=== PATIENT | male | born 1990 | race Two or more races ===

== ENCOUNTER 2019-09-05 10:44 | Day surgery (SDC) | payer MEDICAID ==
[2019-08-28 12:46] LABS: BASOPHILS % (AUTO) 0.3 % (0-1); EOSINOPHILS # (AUTO) 0.4 X10'3 (0-0.9); EOSINOPHILS % (AUTO) 4.1 % (0-6); LYMPHOCYTES # (AUTO) 4.2 X10'3 (1.1-4.8); LYMPHOCYTES % (AUTO) 41.3 % (21-51); MEAN CORPUSCULAR HEMOGLOBIN 21.5 PG (27.0-31.0); MEAN CORPUSCULAR HGB CONC 32.2 g/dL (33.0-36.5); MEAN PLATELET VOLUME 6.9 FL (7.4-10.4); MONOCYTES # (AUTO) 0.7 X10'3 (0-0.9); MONOCYTES % (AUTO) 6.5 % (2-12); NEUTROPHILS # (AUTO) 4.9 X10'3 (1.8-7.7); NEUTROPHILS % (AUTO) 47.8 % (42-75); PRE OP HEMATOCRIT 38.2 % (42.0-52.0); PRE OP HEMOGLOBIN 12.3 g/dL (14.0-17.9); PRE OP PLATELET COUNT 375 X10'3 (140-440)
[2019-08-28 12:51] LABS: ALBUMIN 3.6 G/DL (3.4-5.0); ALBUMIN/GLOBULIN RATIO 0.9 (1.1-1.5); ALKALINE PHOSPHATASE 108 IU/L (46-116); BLOOD UREA NITROGEN 11 MG/DL (7-18); BUN/CREATININE RATIO 10.7 (5.4-32.0); CHLORIDE 105 MMOL/L (99-107); CREATININE 1.03 MG/DL (0.60-1.10); PRE OP ALT 30 U/L (30-65); PRE OP ANION GAP 9 (8-16); PRE OP AST 25 U/L (10-37); PRE OP BILIRUB, TOTAL 0.2 MG/DL (0.0-1.0); PRE OP GLUCOSE 110 MG/DL (70-104); PRE OP POTASSIUM 3.9 MMOL/L (3.4-5.1); PRE OP SODIUM 138 MMOL/L (135-145); TOTAL CARBON DIOXIDE 23.9 MMOL/L (24-32); TOTAL PROTEIN 7.6 G/DL (6.4-8.2); eGFR 86 ML/MIN
[2019-08-28 13:25] LABS: ANISOCYTOSIS 2+; HYPOCHROMASIA 1+; LARGE PLATELETS FEW; MICROCYTOSIS 2+; PLATELET ESTIMATE NORMAL
[~2019-09-05] VITALS: Ht 182.9 cm; Wt 124.7 kg
[2019-09-05] VITALS (11 sets, daily range): BP systolic 124–156; BP diastolic 78–96
[~2019-09-05 10:44] MED LIST: METH10SO PO; NAPR-56 PO; VANCOMYCIN 1,500MG inj. 1,500 MG in normal saline 500ml IV soln 500 ML IV ONE; ceFAZolin 1GM/D5W- ADD-VANTAGE 50 ML IV ONE; ceFAZolin 2gm in dextrose, iso 50 ML IV ONE; famotidine 20mg tablet PO ONE; ringers solution, lacted 1,000 ML IV SCH; vancomycin 1,500 MG in NS 300ml IV soln IV ONE
[2019-09-05] MEDS ORDERED: BUPIVAcaine/PF 2.5 mg/ml (0.25%) 30ml vial ONE (14:05)
[2019-09-05] MEDS ORDERED: methylPREDNISolone sod succ 125mg/2ml vial ONE (14:05)
[2019-09-05] MEDS ORDERED: dexamethasone sod phosphate 10mg/ml inj ONE (14:16)
[2019-09-05] MEDS ORDERED: ondansetron/PF 4mg/2ml inj ONE (14:16)
[2019-09-05] MEDS ORDERED: sevoflurane 250ml liquid IH ONE (14:16)
[2019-09-05] MEDS ORDERED: LIDOcaine 0.5% (5mg/ml) 50ml vial ONE (14:21)
[2019-09-05] MEDS ORDERED: fentaNYL/PF 50MCG/1 ML 2ML syringe ONE (14:25)
[2019-09-05] MEDS ORDERED: MIDAZolam 1mg/ml 10ml vial ONE (14:25)
[2019-09-05] MEDS ORDERED: propofol inj 20 ML IV ONE (14:52)
--- NOTE | 2019-09-05 15:15 | NUR ---
Received from OR via [facility], accompanied by Anesthesiologist DR NEWTON and report given by Anesthesiologist. PT VERY DROWSY, NO S/S OF DISTRESS/DISCOMFORT, LEFT HAND FROM FINGERS TO ABOVE ELBOW W/SPLINT AND DRSG COVERED W/BIAS DRSG, CDI, FINGERS PWD, INFORMATICS PHYSICIAN 1-2 SECONDS. Addendum: 09/05/19 at 1539 by Radhika Pepe RN Amended: Links added.
[2019-09-05] MEDS ORDERED: methadone 10mg tablet PO ONE (16:00)
[2019-09-05] MEDS ORDERED: ringers solution, lacted 1,000 ML IV SCH (16:01)
[2019-09-05] MEDS ORDERED: morphine 4 MG/ML inj SYRINge IV PRN (16:05)
[2019-09-05] MEDS ORDERED: morphine 2 MG/ML inj. syringe IV PRN (16:05)
[2019-09-05] MEDS ORDERED: proCHLORperazine 10 MG/2 ml inj IV PRN (16:05)
[2019-09-05] MEDS ORDERED: meperidine/PF 25mg/ml syringe IV PRN ×3 (16:05)
[2019-09-05] MEDS ORDERED: acetaminophen 1,000mg/100ml IV 100 ML IV PRN (16:05)
[2019-09-05] MEDS ORDERED: ondansetron/PF 4mg/2ml inj IV PRN (16:05)
--- NOTE | 2019-09-05 16:55 | NUR ---
PT COMFORTABLE, ABLE TO AMBULATE SAFELY, D/C INSTRUCTIONS GIVEN AND GONE OVER W/PT WHO VERBALIZED UNDERSTANDING, PT D/CD TO HOME VIA W/C TO PRIVATE VEHICLE W/O INCIDENT. Addendum: 09/05/19 at 1710 by Radhika Pepe RN Amended: Links added.
== END 2019-09-05 16:55 | disposition home or self-care (01) ==
LOC: PAS 10:44 → EDSTATUS 15:45 → PAS 16:55
PROVIDERS: ATTEND Orthopaedic Surgery
DX: G56.02 Carpal tunnel syndrome, left upper limb (principal); G56.22 Lesion of ulnar nerve, left upper limb; G89.4 Chronic pain syndrome; K21.9 Gastro-esophageal reflux disease without esophagitis; E66.01 Morbid (severe) obesity due to excess calories; Z68.37 Body mass index [BMI] 37.0-37.9, adult; Z11.59 Encounter for screening for other viral diseases; Z79.899 Other long term (current) drug therapy
CPT/HCPCS: 36415; 64719; 64721; 76937; 80053; 82948; 85025; A6222; J0690; J1100; J2001; J2250; J2405; J2704; J2930; J3010; J3370; J3490; J7040; U0003; A4215; A4618; A6250; A6449; A7000; J7120